=== PATIENT | male | born 1995 | race Caucasian/White ===

== ENCOUNTER 2025-01-11 11:31 | Emergency (ER) | payer MEDICAID, SELFPAY ==
[2025-01-11 11:37] VITALS: BP 112/71; PULSE 65; RESP 16; TEMP 36.5; O2SAT 98
--- NOTE | 2025-01-11 11:43 | ED.GENADUL_ITS ---
Discharge Plan Disposition Patient Disposition: Home Discharge Details Clinical Impression: Ankle sprain Primary Care Provider: Unknown,Unknown ED Provider: Martha Allen Home Meds and New Rx's Prescriptions: No Action No Known Home Meds Discharge Instructions Instructions: Ankle Sprain ED Additional Instructions: Please follow-up with walk-in primary care such as [facility] in [place] or [place]. A referral to physical therapy may be helpful I recommend that you use the walking boot and crutches as needed, increasing weight to your foot as tolerated. Elevate your foot above heart level to help with swelling. Apply ice for 15 to 20 minutes at a time every hour. You may use Tylenol 650 mg every 6 hours and/or ibuprofen 600 mg every 8 hours. Do not drink alcohol while you are taking Tylenol or ibuprofen. Return to emergency care if you develop new numbness/blueness to your foot, worsening ankle/foot pain, or if you are very worried and need to be rechecked in Stand Alone Forms: Work Release Discharge Data Discharge Date/Time-TO BE ENTERED AT DEPARTURE: 01/11/25 13:39 HPI General Date/Time Provider Initiated Documentation: 01/11/25 11:42 . HPI Narrative: Carlito is a 29 year old male who presents to the emergency department today for evaluation of right ankle/foot pain. He reports that he was coming down off a 5 foot wall running down a ladder holding a bucket in his left hand when he slipped on the ladder, causing him to fall towards the right, landing on his right foot and landing on his side. He has been able to ambulate since incident, but reports pain to the top of his foot and the lateral aspect of his ankle. Some tingling to his toes, but sensation is intact. No previous injury to this ankle. He denies back pain, extremity injury, extremity weakness/numbness, saddle anesthesia/loss of bowel or bladder control.. Past medical history is significant for Lyme disease that causes occasional paresthesias. No regular alcohol use, drinks 1 to 2 days a week couple of beers at a time Physical exam remarkable for tenderness with palpation of dorsum of foot and lateral malleolus. Mild generalized tenderness, no specific tenderness to calcaneus. Patient has been able to weight-bear.+ CMS to toes. Limited flexion and extension of ankle due to discomfort. No pain with palpation of right leg. No C-spine/T-spine/L-spine step-off/tenderness with palpation/deformity. Moving all extremities equally. Superficial abrasion noted to left vo. D/dx includes but is not limited to: Fracture, contusion, sprain. No red flags concerning for axial load injury/lumbosacral fracture. I independently interpreted the following tests: Right ankle and foot x-rays, no obvious fracture noted. This was confirmed by radiologist. While in the emergency department, Carlito received a walking boot and crutches, as he has significant pain with ambulation. Recommend close follow-up with primary care such as through walk-in primary care (he does not currently have a PCP, lives in [place] and would like to establish care out there). Work note provided. Reviewed discharge instructions with patient, including symptomatic management and red flags indicating need for return to emergency care Related Data Home Medications ?Medication ?Instructions ?Recorded ?Confirmed Unknown [No Known Home Meds] 01/11/25 01/11/25 Allergies Allergy/AdvReac Type Severity Reaction Status Date / Time No Known Allergies Allergy Unverified 01/11/25 11:39 General Stated Complaint: Trauma GIOVANNI: 3 Review of Systems Narrative: See HPI Exam Const General: cooperative, healthy appearing, no acute distress and well developed Nutritional Appearance: average body habitus Orientation: alert and oriented x3 Resp Effort & Inspection: normal respiratory effort and able to speak in complete sentences Back/Spine/Pelvis Cervical Spine: normal cervical lordosis and cervical ROM normal Thoracic/Lumbar Spine: thoracic and lumbar spine normal to inspection Skin Trauma: abrasion (superficial laceration to L vo) Neuro General: patient alert, patient oriented x3, tone normal, moves all extremities and no focal motor deficits Motor: muscle tone normal throughout and strength 5/5 throughout Sensory Exam: no sensory deficits noted Extrem General: capillary refill normal Right lower extremity: normal to inspection Left lower extremity: normal capillary refill, no joint enlargement, ankle (Lateral malleolus tenderness) Details: no swelling and foot (Tenderness to dorsum of foot) Details: toes with normal ROM and no edema; no abrasions and no lacerations Course Vital Signs Vital signs: Vital Signs Temperature 36.5 C 01/11/25 11:37 Pulse 65 01/11/25 11:37 Respiratory Rate 16 01/11/25 11:37 Blood Pressure 112/71 01/11/25 11:37 Pulse Oximetry 98 01/11/25 11:37 Temperature 36.5 C 01/11/25 11:37 Pulse 65 01/11/25 11:37 Respiratory Rate 16 01/11/25 11:37 Blood Pressure 112/71 01/11/25 11:37 Pulse Oximetry 98 01/11/25 11:37 Medical Decision Making Imaging Data Radiologic Study: Radiologist's impression: Exam(s) XR ANKLE RT COMPLETE XR FOOT RT COMPLETE EXAM: XR FOOT RT COMPLETE and XR ankle RT complete CLINICAL HISTORY: pain to dorsum of foot after falling off ladder. TECHNIQUE: 2D digital imaging was performed of the right ankle and foot. Seven images were obtained. AP, oblique and lateral views were obtained. COMPARISON: There are no priors for comparison. FINDINGS: BONES: No acute fracture is present. No bony destructive lesion is seen. There is a bipartite medial sesamoid at the head of the 1st metatarsal. JOINTS: No dislocation present. SOFT TISSUE: Normal. IMPRESSION: No acute fracture or dislocation. Quality:SDOH Health Related Social Needs: No Data to Display [facility] All Active Problems (Updated 01/11/25 @ 13:30 by Martha Bar) Ankle sprain (Acute) Social History Smoking/Tobacco Use Status: Current every day Tobacco Type: cigarettes Smoking risk assessment performed?: Yes Alcohol Intake: current Alcohol Intake frequency: a few times a week Drug use: Daily Substance use type: marijuana Do you feel safe at home: Yes Do you feel safe in your relationship?: Yes PAWSS Have you Been Recently Intoxicated or Drunk Within the Last 30 days?: No Have you Ever Experienced Previous Episodes of Alcohol Withdrawal?: No Have you ever Experienced Withdrawal Seizures?: No Have you ever Experienced Delirium Tremens(DT)s?: No Have you ever undergone Alcohol Rehabilitation Treatment (i.e, inpt ot outpatient treatment programs)?: No Have you ever Experienced Blackouts?: No Have you ever Combined Alcohol with other Downers within the last 90 days?: No Have you ever Combined Alcohol with any other Substance of Abuse during the last 90 days?: No Positive Blood Alcohol level on Presentation? [PCS.BAL]: No Evidence of Increased Autonomic Activity (i.e. HR>120, tremor, sweating, deidra tation, nausea)?: No Result: 0
[2025-01-11] MEDS: Acetaminophen 325 MG TAB 650 MG PO (11:52)
--- NOTE | 2025-01-17 12:09 | NUR.NOTE ---
Nursing Note: chart accessed to reprint discharge paperwork per patient request
== END 2025-01-11 13:39 | disposition home or self-care (01) ==
PROVIDERS: Emergency Provider Nurse Practitioner Family
DX: S93.401A Sprain of unspecified ligament of right ankle, initial encounter (principal); W11.XXXA Fall on and from ladder, initial encounter; Y93.H3 Activity, building and construction; Y92.89 Other specified places as the place of occurrence of the external cause
CPT/HCPCS: 99283; 73610; 73630